=== PATIENT | male | born 1970 | race Caucasian/White ===

== ENCOUNTER 2025-02-13 08:44 | Inpatient (IN) | payer MEDICARE, OTHER ==
[~2025-02-13] VITALS: Ht 167.6 cm; Wt 84.8 kg
--- NOTE | 2025-02-13 09:02 | ELECTROCARDIOGRAPH REPORT ---
[facility] Test Date: 2025-02-13 Test Time: 08:57:05 Pat Name: KYLE WYLIE Department: EMERGENCY ROOM Room: [place] [address] Gender: M [employer] Software Developer: : [id number] Requested By: REBECCA MCGOWAN Order Number: [id number] Reading MD: Dr. João Lauren Measurements Intervals Stark Rate: 90 P: 61 NH: 174 QRS: 73 QRSD: 154 T: 27 QT: 430 QTc: 527 Interpretive Statements Sinus rhythm Probable left atrial enlargement Right bundle branch block Electronically Signed On 02-13-2025 18:20:[address] João Lauren Please click the below link to view image of tracing.
[2025-02-13 09:19] LABS: MEAN PLATELET VOLUME 7.7 FL (7.4-10.4); RED CELL DISTRIBUTION WIDTH 13.6 % (11.5-14.5)
--- NOTE | 2025-02-13 09:34 | Physician Documentation ---
History of Present Illness Chief Complaint: Shortness of Breath Stated Complaint: SOB Time Seen by MD: 09:17 Mode of Arrival: EMS HPI 55-year-old male was seen at [facility] for a sore throat and flu-like symptoms. Was discharged and returned with suspected acute respiratory failure and possible aspiration. Currently on 6 L of oxygen was treated with Rocephin and Zithromax denies any chest pain. Patient does have a history of heart failure and schizophrenia. Patient presents with a pale color his current x- rays indicate right basilar pneumonia. Is somnolent but easily arousable to verbal stimuli. Scott in place patient did receive 20 mg of Lasix prior to arrival along with the antibiotics addition he received 125 mg of Solu-Medrol. Day of Onset: Feb 13, 2025 Medication Reconciliation Allergies: Coded Allergies: No Known Allergies (Unverified , 02/13/25) Scheduled Famotidine (Famotidine), 1 TAB PO Q12H, (Reported) Metoprolol Succinate (Metoprolol Succinate), 25 MG PO DAILY, (Reported) Paliperidone (Invega), 1 TAB PO QAM, (Reported) Quetiapine Fumarate* (Seroquel*), 750 MG PO HS, (Reported) Scheduled PRN Buprenorphine HCl/Naloxone HCl (Buprenorphin-Naloxon 8-2 mg Tb), 1 TAB SL QDAY PRN PRN for pro, (Reported) Furosemide* (Lasix*), 1 TAB PO DAILY PRN for Per Protocol, (Reported) Mirtazapine (Remeron), 1-2 TAB PO HS PRN for sleep, (Reported) Trazodone HCl (Trazodone HCl), 1-2 TAB PO HS PRN for sleep, (Reported) Review of Systems All Other Systems at this time: Reviewed and Negative ROS As stated above in the HPI, otherwise all systems are reviewed and negative. Physical Exam Vital Signs: Temperature: 98.4, Source: Oral, Heart Rate: 89, Respiratory Rate: 16, BP: 99/66, Pulse Oximetry: 96, Weight: 81.360 Oxygen Flow Rate: 4.0 Physical Exam General: Altered respiratory: diminshed lung sounds right side, no audible crackles Cardiovascular: Regular rate and rhythm, no murmurs. Mildly hypotensive Extremities: Bilateral 2+ pitting edema Neurologic: oreinted x 2 Skin: Pale skin color warm and dry. No edema, no ecchymosis. Progress Results/Orders Results/Orders Vital Signs 02/13/25 02/13/25 02/13/25 08:51 09:15 09:27 Temp 98.4 Pulse 89 Resp 15 16 B/P (MAP) 99/66 Pulse Ox 99 96 O2 Delivery Nasal Cannula* O2 Flow Rate 4.0 4 FiO2 36 Laboratory Tests Test 02/13/25 09:07 White Blood Count 13.2 H Red Blood Count 3.91 L Hemoglobin 12.1 L Hematocrit 36.4 L Mean Corpuscular Volume 93.1 Mean Corpuscular Hemoglobin 31.1 H Mean Corpuscular Hemoglobin Concent 33.4 Red Cell Distribution Width 13.6 Platelet Count 223 Mean Platelet Volume 7.7 Neutrophils (%) (Auto) 91.6 H Lymphocytes (%) (Auto) 2.5 L Monocytes (%) (Auto) 5.7 Eosinophils (%) (Auto) 0.1 Basophils (%) (Auto) 0.1 Neutrophils # (Auto) 12.1 H Lymphocytes # (Auto) 0.3 L Monocytes # (Auto) 0.8 Eosinophils # (Auto) 0.0 Basophils # (Auto) 0.0 CBC Comment Chemistry Comments Medical Decision Making Findings 65-year-old male appears to have decompensated two acute respiratory failure and a CHF exacerbation. He has received IV antibiotics and will require further observation by hospitalist service. I added 60 mg of Lasix as he does have pitting edema lower extremities. This patient is altered A&O x2, he is mildly hypotensive with a map of 70 Differential Dx:Considerations: Include: AAA, Angina/DC, Aortic dissection, Appendicitis, Bowel obstruction, Cholangitis, Cholelithasis, Constipation, Diverticular disease, Esophageal rupture, Esophagitis, Gastritis/PUD, Gastroenteritis, GI hemorrhage, Hernia, Hepatitis, Inflammatory BD, Ischemic bowel, Pancreatitis, Porphyria, Testicular torsion, Trauma, intraabdominal, Urinary obstruction, Urinary tract infection, Urolithiasis, Other Departure Disposition: ADMITTED INPATIENT Impression: Primary Impression: Acute on chronic diastolic heart failure Additional Impression: Pneumonia Referrals: NO PRIMARY CARE PROVIDER (PCP) Critical Care Note Total Time (mins): 30 Critical Care Note The very real possibility of a deterioration of this patient's condition required the highest level of my preparedness for sudden, emergent intervention. I provided critical care services, which included medication orders, frequent reevaluations of the patient's condition and response to treatment, ordering and reviewing test results, and discussing the case with various consultants. Excludes time spent performing separately billable procedures. The critical care time associated with the care of the patient was. Signature Scribe Signature: k Attestation: Scribed for Vance Vega Production Control Technologist by Vance Mejia NP . 02/13/25 18:18 VANCE VEGA NP Feb 13, 2025 09:34
--- NOTE | 2025-02-13 09:36 | RADIOLOGY REPORT ---
EXAM: DI CHEST,SINGLE VIEW HISTORY: CP COMPARISON: None TECHNIQUE: Portable upright AP view of the chest was performed. FINDINGS: There is patchy infiltrate in the right lung base partially obscuring the right heart border and righ t hemidiaphragm. No pneumothorax or pulmonary edema. The heart is not enlarged. There is a left chest AICD. IMPRESSION: 1. Right basilar pneumonia. 2. The left lung is clear.
[2025-02-13 09:43] LABS: CREATININE 1.20 MG/DL (0.60-1.10); PRO BRAIN NATRIURETIC PEPTIDE 2076 PG/ML (0-125); TOTAL CARBON DIOXIDE 27.8 MMOL/L (24-32); eCRCL 63 ML/MIN; eGFR 63 ML/MIN
[2025-02-13] MEDS ORDERED: furosemide 10 MG/1 ML 10ml inj IV ONE (09:55)
[2025-02-13] MEDS: normal saline 500ml IV soln 500 ML IV SCH (10:40)
[2025-02-13] MEDS: furosemide 10 MG/1 ML 10ml inj IV ONE (10:52)
[2025-02-13] MEDS ORDERED: potassium Cl 20 mEq SR tablet PO PRN (10:55)
[2025-02-13] MEDS ORDERED: potassium Cl 40MEQ/1/2NS 520ml 520 ML IV PRN (10:55)
[2025-02-13] MEDS ORDERED: magnesium sulf-water 4G/100mL 100 ML IV PRN (10:55)
[2025-02-13] MEDS ORDERED: ondansetron/PF 4mg/2ml inj IV PRN (10:55)
[2025-02-13] MEDS ORDERED: magnesium hydroxide 30ml (MOM) UD suspension PO PRN (10:55)
[2025-02-13] MEDS ORDERED: ipratropium/albuterol 3ml nebule NEB PRN (10:55)
[2025-02-13] MEDS ORDERED: magnesium sulf-water 2g/50mL 50 ML IV PRN (10:55)
[2025-02-13] MEDS: normal saline 1000ml 1,000 ML IV SCH ×2 (11:05→14:12)
[2025-02-13] MEDS: midodrine tablet 2.5 MG TABLET PO SCH (11:29)
[2025-02-13] MEDS: levoFLOXACIN-Levaquin 750MG/D5 150 ML IV STA (11:33)
--- NOTE | 2025-02-13 12:21 | HISTORY AND PHYSICAL ---
History & Physical Providers to CC ~ History of Present Illness Reason for Admit\Complaint: Pneumonia, hypoxic respiratory failure History of Present Illness Isaac Rosado is a 55-year-old male with a past medical history of diastolic heart failure and schizophrenia who was transferred from [facility] for management of pneumonia and acute metabolic encephalopathy. Patient was examined at bedside in the presence of his mother Zaynab Rosado and his brother. At the time of assessment patient is awake, alert, and oriented x 2, however due to decreased mental status from his baseline, most history was taken from transferring facility medical records and his family. Patient came to [place] for vacation with his family. Family reports acute onset severe sore throat, altered mental status, shortness of breaths x 2 days. Denies cough, abdominal pain, n/v/d, palpitations, headache, fever, chills, loss of consciousness. Denies prior ID/CAD, CVA, cardiac arrhythmia, DVT/PE, or GIB. Initial diagnostic findings were notable for elevated procal, hypotension with systolic in 90s, abnormal renal function, leukocytosis, elevated NT-pBNP, chest x-ray indicating right basilar pneumonia and CT chest revealing multifocal right lung pneumonia most prominent in the right middle lobe and right lower lobe. Patient is to be admitted for further workups and treatment. Allergies: Coded Allergies: No Known Allergies (Unverified , 02/13/25) Past Medical History Past Medical History CHF Schizophrenia Past Surgical History Surgical History Comment AICD placement Past Social History Social History Comment Alcohol: Denies Tobacco: Former smoker, quit two years ago, 20 pack year history Illicit drug use: History of methamphetamine and opioid abuse Living situation: Lives at home with family ROS ROS Other than positives in HPI, all 14 review of systems are negative Exam Vitals: Vital Signs Date Time Temp Pulse Resp B/P (MAP) Pulse Ox O2 Delivery O2 Flow Rate FiO2 02/13/25 09:27 96 Nasal Cannula* 4 36 02/13/25 09:15 16 02/13/25 08:51 98.4 89 General: A&Ox2, NAD HEENT: Normocephalic, PERRLA Neck: Supple, trachea midline, no JVD Chest: Diminished right lung sounds Cardiovascular: RRR, S1&S2 Abdomen: Soft and nontender Extremities: No cyanosis/clubbing/or edema Central Nervous System: No focal deficits Musculoskeletal: No paraspinal muscle tenderness, no muscle spasm Skin: Warm and intact Diagnostic Data Last Recorded Lab Results: 02/13/25 0907 02/13/25 0907 Additional Plan Assessment & Plan Community-acquired pneumonia, covering for Gram-positive and Gram-negative Sepsis 2/2 PNA Acute hypoxemic respiratory failure 2/2 PNA Respiratory acidosis, compensated Acute metabolic encephalopathy 2/2 above Prerenal MERRY 2/2 dehydration/vasomotor nephropathy Acute decompensated heart failure- TTE to follow s/p AICD Hx polysubstance abuse including opioids and methamphetamine Schizophrenia Malnutrition, mild- POA -ABG compensated respiratory acidosis, procal 3.75, normal lactic acid, pBNP 2000, trops negative, afebrile; CT chest shows multifocal right lung pneumonia most prominent in the right middle lobe and right lower lobe. -start Levaquin/cefepime, IVF, midodrine, supplemental oxygen, bronchodilators; consulted Supervisory Historian Dr. Hartmann recommended fluid resuscitation with 4L LR, cefepime/Levaquin, recommended against vanco for now with no recent hospitalizations within 3 months; consulted ID Dr. Nayak -follow TTE, ST eval, spot urine lytes, UA, strict I&Os, UDS, resp culture, will start GDMT as indicated DVT/VTE Prophylaxis: heparin Code Status: Full Code I spent a total of 35 minutes discussing Advanced Care Planning measures with the patient and his mother Zaynab Rosado. Advance care planning: Discussed with patient and his mother Zaynab Rosado the importance of advance care planning in case of emergent situation. We discussed various resuscitative measures/ ACP with the patient at the time of admission. Patient and his mother voiced understanding and patient has decided on a full code status. Date of Service: Feb 13, 2025 Billing Provider: CURT AMARAL Common Visit Codes: [id number] INP/OBS CARE (HIGH) Secondary Visit Codes: [id number] CARE PLAN 30 MINUTES CURT AMARAL Feb 13, 2025 12:21
--- NOTE | 2025-02-13 12:22 | RADIOLOGY REPORT ---
Procedure: CT CT CHEST Reason for study/Clinical History: pneumonia, hypoxia Comparison Study: None TECHNIQUE: Multidetector CT of the chest was performed from the lung apices to the upper abdomen with out the use of intravenous contract. Axial, coronal and sagittal multiplanar reformats were performed . Radiation Dose Information: CT Dose: CTDI volume is 17.6 mGy. Dose-length product is 600.7 mGy*cm The dose indicators for CT are the volume Computed Tomography (CT) Dose Index (CTDIvol) and the Dose Length Product (DLP), and are measured in units of mGy and mGy-cm, respectively. These indicators are not patient dose, but values generated from the CT scanner acquisition factors. The report includes radiation exposure data for exposures received during this examination. FINDINGS: Lower neck: Unremarkable. Lungs: Multifocal right lung airspace disease most prominent in the right middle lobe and right lower lobe. Heart/Vascular Structures: Cardiomegaly. Coronary artery calcifications. Vascular calcifications of t he aorta. Left chest pacemaker. Lymph Nodes: No adenopathy Pleura: No pleural effusion or significant pneumothorax. Musculoskeletal: No acute osseous abnormality. Soft tissues: Normal. Upper abdomen: Limited portions of the upper abdomen are unremarkable. IMPRESSION: Multifocal right lung pneumonia most prominent in the right middle lobe and right lower lobe.
[2025-02-13 12:24] LABS: ABG BASE EXCESS -1.1 mmol/L (-2.0-3.0); ABG HCO3 24.3 mmol/L (21.0-28.0); ABG OXYGEN SATURATION 95.3 % (94.0-98.0); ABG PCO2 (T) 43.2 mmHg (35.0-48.0); ABG PH (T) 7.367 (7.350-7.450); ABG PO2 (T) 80.6 mmHg (83.0-108.0); ALLEN'S TEST POSITIVE; FCOHb 0.3 % (0.5-1.5); FHHb 4.7 % (0.0-5.0); FIO2 36.0 mmHg/%; FLOW 4 L/min; FMetHb 0.3 % (0.0-1.5); FO2Hb 94.7 % (94.0-98.0); MODE NASAL CANNULA; PATIENT TEMPERATURE 36.9; TOTAL HEMOGLOBIN 13.1 G/dl (13.5-17.5)
[2025-02-13 12:25] LABS: URINE AMPHETAMINE SCREEN NEGATIVE (Neg); URINE BARBITUATE SCREEN NEGATIVE (Neg); URINE BENZODIAZEPINES SCREEN POSITIVE (Neg); URINE CANNABINOID SCREEN POSITIVE (Neg); URINE COCAINE SCREEN NEGATIVE (Neg); URINE METHADONE SCREEN NEGATIVE (Neg); URINE OPIATE SCREEN NEGATIVE (Neg); URINE PHENCYCLIDINE SCREEN NEGATIVE (Neg)
[2025-02-13] MEDS ORDERED: FAMO20TA8 PO (12:35)
[2025-02-13] MEDS ORDERED: BUPR1TAB45 SL (12:35)
[2025-02-13] MEDS ORDERED: METO-395 PO (12:35)
[2025-02-13] MEDS ORDERED: MIRT-142 PO (12:35)
[2025-02-13] MEDS ORDERED: TRAZ-251 PO (12:35)
[2025-02-13] MEDS ORDERED: PALI3TAB PO (12:35)
[2025-02-13] MEDS ORDERED: QUET-1 PO (12:35)
[2025-02-13] MEDS ORDERED: FURO-150 PO (12:35)
[2025-02-13 13:30] VITALS: BP 101/64; PULSE 73; RESP 11; TEMP 94.6; O2SAT 96
[2025-02-13] MEDS: albuterol 2.5 MG/3 ML nebule NEB PRN (14:59)
[2025-02-13 15:00] VITALS: BP 94/57; PULSE 64; PULSE 80; RESP 11; RESP 16; TEMP 97.3; O2SAT 95
[2025-02-13 15:07] VITALS: PULSE 65; PULSE 72; RESP 16
[2025-02-13] MEDS: normal saline 1000ml 1,000 ML IV ONE (15:14)
[2025-02-13] MEDS ORDERED: normal saline 1000ml 1,000 ML IV STA (16:33)
[2025-02-13] MEDS: normal saline 1000ML IV soln IV ONE (16:41)
[2025-02-13] MEDS ORDERED: cefepime 2g/NS 100ml ADVANTAGE 100 ML IV SCH (16:55)
[2025-02-13] MEDS ORDERED: VANCOMYCIN 2GM/400ML H20 (PEG) 400 ML IV ONE (17:00)
[2025-02-13] MEDS ORDERED: ringers solution, lacted 1,000 ML IV SCH ×2 (17:05→17:45)
[2025-02-13 17:06] LABS: LEUKOCYTE ESTERASE ,URINE NEGATIVE (Neg); NITRITES, URINE NEGATIVE (Neg); OCCULT BLOOD,URINE NEGATIVE (Neg)
[2025-02-13 17:11] LABS: URINE AMPHETAMINE SCREEN NEGATIVE (Neg); URINE BARBITUATE SCREEN NEGATIVE (Neg); URINE BENZODIAZEPINES SCREEN NEGATIVE (Neg); URINE CANNABINOID SCREEN NEGATIVE (Neg); URINE COCAINE SCREEN NEGATIVE (Neg); URINE METHADONE SCREEN NEGATIVE (Neg); URINE OPIATE SCREEN NEGATIVE (Neg); URINE PHENCYCLIDINE SCREEN NEGATIVE (Neg)
[2025-02-13 17:13] LABS: UA COLLECTION TYPE FOLEY CATH
--- NOTE | 2025-02-13 17:22 | CONSULTATION REPORT - RESIDENT ---
Consult Providers to CC Resident Creating Document: ZOILA HURST RES History of Present Illness Reason for Admit\Complaint: Pneumonia, acute hypoxemic respiratory failure History of Present Illness 55-year-old male with a past medical history of hypertrophic cardiomyopathy status post alcohol ablation at [facility] 2005, status post AICD, diastolic heart failure and schizophrenia who was transferred from [facility] for management of pneumonia and acute metabolic encephalopathy. Patient was examined at bedside in the presence of his mother Zaynab Rsoado and his brother. At the time of assessment.. Patient came to [place] for vacation with his family. Family reports acute onset severe sore throat, altered mental status, shortness of breaths x 2 days. Endorses dry cough for the past 1 day. Denied abdominal pain, n/v/d, palpitations, headache, fever, chills, loss of consciousness. Denies prior WI/CAD, CVA, cardiac arrhythmia, DVT/PE, or GIB. Initial diagnostic findings were notable for elevated procal, hypotension with systolic in 90s, abnormal renal function, leukocytosis, elevated NT-pBNP, chest x-ray indicating right basilar pneumonia and CT chest revealing multifocal right lung pneumonia most prominent in the right middle lobe and right lower lobe. Patient is to be admitted for further workups and treatment Reason for consultation : Acute hypoxemic respiratory failure with right lung pneumonia(for 1 day duration and without any previous pneumonia episodes and antibiotic use in the last couple of years) Allergies: Coded Allergies: No Known Allergies (Unverified , 02/13/25) Home Medications Home Medications Active Reported Lasix* (Furosemide) 20 Mg Tablet 1 Tab PO DAILY PRN Trazodone HCl 50 Mg Tablet 1-2 Tab PO HS PRN Famotidine 20 Mg Tablet 1 Tab PO Q12H Remeron (Mirtazapine) 15 Mg Tablet 1-2 Tab PO HS PRN Metoprolol Succinate 25 Mg Tab.sr.24h 25 Mg PO DAILY Invega (Paliperidone) 3 Mg Tab.er.24 1 Tab PO QAM Seroquel* (Quetiapine Fumarate) 100 Mg Tablet 750 Mg PO HS Buprenorphin-Naloxon 8-2 mg Tb (Buprenorphine HCl/Naloxone HCl) 8 Mg-2 Mg Tab.subl 1 Tab SL QDAY PRN PRN Past Medical History Past Medical History CHF Schizophrenia Hypertrophic cardiomyopathy status post alcohol ablation in 2005 at [facility] Status post AICD Past Surgical History Surgical History Comment AICD placement ROS ROS Alcohol: Denies Tobacco: Former smoker, quit two years ago, 20 pack year history Illicit drug use: History of methamphetamine and opioid abuse Living situation: Lives at home with family Exam Vitals: Vital Signs Date Time Temp Pulse Resp B/P (MAP) Pulse Ox O2 Delivery O2 Flow Rate FiO2 02/13/25 15:07 65 16 Nasal Cannula 6.0 02/13/25 15:00 97.3 94/57 (69) 95 02/13/25 15:00 44 General: HEENT: Normocephalic, PERRLA Neck: Supple, trachea midline, no JVD Chest: Diminished right lung sounds Cardiovascular: RRR, S1&S2 Abdomen: Soft and nontender Extremities: No cyanosis/clubbing/or edema Central Nervous System: No focal deficits Musculoskeletal: No paraspinal muscle tenderness, no muscle spasm Skin: Warm and intact Diagnostic Data Last Recorded Lab Results: 02/13/25 0907 02/13/25 0907 Additional Plan Acute hypoxemic respiratory failure Acute metabolic encephalopathy Pneumonia community-acquired pneumonia versus health care associated pneumonia Possible Sepsis Procalcitonin is elevated 3.75 Hypotension Map is maintaining over 65 Order influenza A and B and COVID-19 Ordered gram staining and culture, Preliminary blood culture recent negative Maintaining oxygen saturation at 95% with 6 L of oxygen via nasal cannula Imaging with chest x-ray and CT scan is showing right middle on lower lobe pneumonia Recommended for vancomycin, cefepime, levofloxacin Recommended 4 L of crystalloid IV fluid resuscitation Imaging with chest x-ray and CT scan is showing right middle on lower lobe pneumonia Can be managed in PCU and no need of immediate transferr to ICU because blood pressures & saturation is maintaining with oxygen and crystalloid administration. Call us as needed. Mild normocytic normochromic anemia Cannabinoid use CHF Schizophrenia Management of above per hospitalist team Disposition: Deescalate the antibiotics to ceftriaxone and levofloxacin from tomorrow morning. Zoila Hurst ICU resident, PGY 2 Date of Service: Feb 13, 2025 Billing Provider: SUHAIL ZAMORA MD, VENKATESH, RES Feb 13, 2025 17:22
[2025-02-13] MEDS: LACTATED RINGERS IV ONE (17:28)
[2025-02-13] MEDS: CEFEPIME 2gm in D5W 50mL 50 ML IV SCH (17:40)
[2025-02-13 18:00] VITALS: BP 96/62; PULSE 80; RESP 12; TEMP 97.7; O2SAT 95
[2025-02-13] MEDS ORDERED: normal saline 1000ml 1,000 ML IV ONE (18:00)
--- NOTE | 2025-02-13 18:10 | RADIOLOGY REPORT ---
CT CT HEAD Indication: encephalopathy EXAM DATE: 02/13/2025 05:47 PM COMPARISON: None TECHNIQUE: CT of the head without intravenous contrast. RADIATION DOSE: CTDIvol: 65 mGy, DLP: 1227 mGy*cm FINDINGS: There is no intracranial hemorrhage. There is no extra-axial fluid, mass, mass effect or midline shif t. The ventricles are midline and normal in size. Basilar cisterns are patent. There are mild periven tricular and subcortical white matter chronic microvascular ischemic changes. The paranasal sinuses and mastoids are well-pneumatized. Imaged portion of the orbits are unremarkabl e. IMPRESSION: No intracranial hemorrhage or mass effect. Mild chronic microvascular ischemic changes.
--- NOTE | 2025-02-13 19:11 | CARDIOLOGY REPORT ---
APPROVED REPORT EXAM: Comprehensive 2D, Doppler, and color-flow Echocardiogram. Patient Location: [facility]5 B Heart Rate: 70's bpm Rhythm: SINUS Indications CONGESTIVE HEART FAILURE PACEMAKER 2005 ABLATION 2005 Heat Welder Plastics: NONE (OUT OF AREA) Previous echo: NONE 2D Dimensions RVDd 3.3 cm IVSd 1.4 (0.7-1.1cm) LVDd 3.6 cm PWd 1.4 (0.7-1.1cm) IVSs 1.6 (0.8-1.2cm) LVDs 2.6 (2.5-4.0cm) PWs 1.8 (0.8-1.2cm) LVOT Diameter 2.05 (1.8-2.4cm) LVEF(%) 54.6 (>50%) IVC 17.52 mm FS (%) 27.7 % SV 30.6 ml CO 2.2 L/min M-Mode Dimensions Left Atrium(MM) 5.02 (2.5-4.0cm) Aortic Root 2.97 (2.2-3.7cm) Aortic Cusp Exc 1.98 (1.5-2.0cm) Aortic Valve AoV Peak Femi. 201.8 cm/s AoV VTI 42.6 cm AO Peak GR. 16.3 mmHg AO Mean GR. 9 mmHg LVOT VTI 30.96 cm LVOT Peak Femi. 167.6 cm/s AGUILA(VTI)/BSA 2.40 cm2/m2 AGUILA (VTI) 2.40 cm2 Mitral Valve MV E Velocity 74.0 cm/s MV Peak Gr. 4 mmHg MV DECEL TIME 136 ms MV A Velocity 124.8 cm/s MV PHT 68 ms E/A Ratio 0.6 MVA (PHT) 3.24 cm2 MV DGap591.8 cm/s TDI Lateral E' P. V9.91 cm/s E/Lateral E' 7.5 Tricuspid Valve TR P. Velocity 283 cm/s RAP ESTIMATE 10 mmHg TR Peak Gr. 32 mmHg RVSP 42 mmHg LEFT VENTRICLE Normal LV size and function. Moderate concentric hypertrophy. LVEF is 65-70%. RIGHT VENTRICLE RV is mildly dilated with normal function. Pacemaker wire in right heart. Elevated right heart pressu res with an RVSP of 42 mmHg. ATRIA Left atrium is moderately dilated. AORTIC VALVE Trileaflet AV appears normal without stenosis. No insufficiency. MITRAL VALVE Mild MV annular calcification without stenosis. Trace regurgitation. TRICUSPID VALVE TV appears structurally normal with trace regurgitation. PULMONIC VALVE Normal PV without stenosis, no insufficiency. GREAT VESSELS The aortic root is normal in size. IVC is normal in size and collapses greater than 50% with inspirat ion. PERICARDIUM Normal pericardium. No effusion. Other Information Study Quality: Adequate Conclusion Normal LV size and function. Moderate concentric hypertrophy. LVEF is 65-70%. RV is mildly dilated with normal function. Pacemaker wire in right heart. Elevated right heart pressu res with an RVSP of 42 mmHg. Left atrium is moderately dilated. Trileaflet AV appears normal without stenosis. No insufficiency. Mild MV annular calcification without stenosis. Trace regurgitation. TV appears structurally normal with trace regurgitation. Normal pericardium. No effusion.
[2025-02-13] MEDS ORDERED: CLON0.5T5 PO (19:37)
[2025-02-13] MEDS: docusate sod 100mg capsule PO SCH (19:39)
[2025-02-13] MEDS: heparin, porcine 5000 units/ml vial SQ SCH (19:39)
[2025-02-13 20:00] VITALS: RESP 19; O2SAT 94
[2025-02-13] MEDS: K and/or MAG REPLACEMENT MC SCH (20:00)
[2025-02-13] MEDS: ringers solution, lacted 1,000 ML IV SCH (21:36)
[2025-02-13 22:00] VITALS: BP 97/67; PULSE 93; RESP 14; TEMP 98.4; O2SAT 95
[2025-02-14] VITALS (12 sets, daily range): BP systolic 95–120; BP diastolic 57–77; PULSE 76–100; RESP 10–20; TEMP 97.4–98.3; O2SAT 92–98
[2025-02-14] MEDS: calcium carbonate 500mg chew tablet PO ONE ×2 (03:11→03:12)
[2025-02-14] MEDS ORDERED: vancomycin/NS 1 GM ADD-VANTAGE 250 ML X 1 DOSE IV SCH (05:00)
[2025-02-14 06:49] LABS: MEAN PLATELET VOLUME 8.4 FL (7.4-10.4); RED CELL DISTRIBUTION WIDTH 13.6 % (11.5-14.5)
[2025-02-14 07:16] LABS: CREATININE 1.04 MG/DL (0.60-1.10); PRO BRAIN NATRIURETIC PEPTIDE 4899 PG/ML (0-125); TOTAL CARBON DIOXIDE 26.1 MMOL/L (24-32); eCRCL 72 ML/MIN; eGFR 74 ML/MIN
[2025-02-14] MEDS: PALIPERIDONE 3 MG TAB.ER.24 PO SCH (07:27)
[2025-02-14] MEDS: levoFLOXACIN-Levaquin 750MG/D5 150 ML IV SCH (07:30)
[2025-02-14] MEDS: lactobacillus rhamnosus 10,000 MMU CELLS/CAPSULE PO SCH (08:00)
[2025-02-14] MEDS ORDERED: buprenorphine/naloxone 8mg/2mg SL tablet SL SCH (08:00)
--- NOTE | 2025-02-14 11:15 | PROGRESS NOTE ---
Daily Progress Note Providers to CC ~ Antibiotic Timeout Antibiotic Ordered?: Yes If Yes, Indications: Pneumonia Subjective No acute events overnight. Patient examined at bedside. No new complaints not in acute distress. Patient is more alert and oriented than yesterday, denies chest pain, sob, palpitations, abdominal pain, n/v/d. Blood pressure stable with systolic in 90s after 4 L of bolus fluid resuscitation, on 4-6 L supplemental oxygen via nasal cannula. Making good urine output. Labs notable for uptrending white count and slightly downtrended creatinine on IVF. TTE LVEF 65-70%, RVSP 42mmHg, no significant VHD. Objective Vital Signs Date Time Temp Pulse Resp B/P (MAP) Pulse Ox O2 Delivery O2 Flow Rate FiO2 02/14/25 10:05 89 14 94 Nasal Cannula* 4 36 02/14/25 06:00 98.3 98/65 (76) Result Diagram: 02/14/25 0607 02/14/25 0607 Physical Exam General: Generalized weakness, A&Ox3, NAD HEENT: Normocephalic, PERRLA Neck: Supple, trachea midline, no JVD Chest: Clear to auscultation bilaterally Cardiovascular: RRR, S1&S2 GI: Soft and nontender Extremities: No cyanosis/clubbing/or edema UMBRELLA SUPERVISOR: No focal deficits Musculoskeletal: No paraspinal muscle tenderness, no muscle spasm Skin: Warm and intact Problem\Assessment\Plan Patient is a 55-year-old male who was transferred from [facility] for management of pneumonia and encephalopathy. Influenza A and B and COVID-19 negative at [facility]. Assessment & Plan Community-acquired pneumonia, covering for Gram-positive and Gram-negative Sepsis 2/2 PNA Acute hypoxemic respiratory failure 2/2 PNA Respiratory acidosis, compensated Acute metabolic encephalopathy 2/2 above Prerenal MERRY 2/2 dehydration/vasomotor nephropathy Acute decompensated heart failure- TTE to follow s/p AICD Hx polysubstance abuse including opioids and methamphetamine Schizophrenia Malnutrition, mild- POA -ABG compensated respiratory acidosis, procal 3.75, normal lactic acid, pBNP 2000, trops negative, afebrile; CT chest shows multifocal right lung pneumonia most prominent in the right middle lobe and right lower lobe. -start Levaquin/cefepime, IVF, midodrine, supplemental oxygen, bronchodilators; consulted Machine Hostler Dr. Hartmann recommended fluid resuscitation with 4L LR, cefepime/Levaquin, recommended against vanco for now with no recent hospitalizations within 3 months; consulted ID Dr. Nayak -follow TTE, ST eval, spot urine lytes, UA, strict I&Os, UDS, resp culture, will start GDMT as indicated -02/14: TTE LVEF 65-70%, RVSP 42mmHg, no significant VHD DVT/VTE Prophylaxis: heparin Code Status: Full Code Date of Service: Feb 14, 2025 Billing Provider: CURT AMARAL Common Visit Codes: [id number] INP/OBS CARE(HIGH) CURT AMARAL Feb 14, 2025 11:15
[2025-02-14] MEDS: HYDROcodone/acetaminophen 5mg/325mg tablet PO ONE (13:25)
[2025-02-14] MEDS: lactobacillus rhamnosus 10,000 MMU CELLS/CAPSULE PO ONE (13:26)
[2025-02-14] MEDS: mag hydrox/Alum hydrox/simeth 30ml oral suspension PO PRN (15:26)
--- NOTE | 2025-02-14 19:08 | CONSULTATION ---
DATE OF CONSULTATION: 02/14/2025 DICTATING PHYSICIAN: Arnol Nayak MD REASON FOR CONSULTATION: I am seeing the patient at the request of Reese Chavez for evaluation of pneumonia with associated sepsis. HISTORY OF PRESENT ILLNESS: The patient is a 55-year-old male with cardiomyopathy and schizophrenia who was transferred to this facility from [facility] early yesterday with pneumonia and respiratory failure. He apparently had some alteration of mental status when he first presented, but that has cleared up quickly. He was admitted to the hospitalist service. His blood pressure has been a little bit on the low side. His systolic has been as low as the mid-80s yesterday and he is more in the mid to upper 90s today. It is unclear where his blood pressure normally runs. He has been receiving IV fluids and he has been placed on midodrine. He normally takes low-dose metoprolol along with some furosemide. He was given broad-spectrum antibiotics including cefepime and levofloxacin. He states that he is feeling much better. Of note, he states that he takes Suboxone daily consisting of 2 strips for chronic pain. He is only receiving a little bit of Cooks right now. He does have an elevated white blood cell count, but no fever. He is requiring 3 liters of supplemental oxygen. It does appear that he was requiring more yesterday. PAST MEDICAL HISTORY: Cardiomyopathy. He does have an echocardiogram here that shows a normal ejection fraction. He did have moderate concentric left ventricular hypertrophy. PAST SURGICAL HISTORY: ICD placement. ALLERGIES: None. MEDICATIONS: * Cefepime. * Levofloxacin. * Colace. * Subcutaneous heparin. * Lactobacillus. * Midodrine. * Paliperidone. * Seroquel. FAMILY HISTORY: Noncontributory. SOCIAL HISTORY: He lives with family. They actually lived down in [place]. They were up here in [facility] on vacation. They apparently go to the [facility] every year. He no longer smokes. He has a distant history of drug abuse. PHYSICAL EXAMINATION: VITAL SIGNS: He is afebrile with stable vital signs, currently on 3 liters. Systolic blood pressure is right around 100. GENERAL: He is a very pleasant middle-aged male, lying in bed, looking stable. HEENT: Sclerae anicteric. Mouth is clear. NECK: Supple. LUNGS: Reveal some crackles at the right base. HEART: Regular rate and rhythm. ABDOMEN: Soft, nontender, and nondistended. EXTREMITIES: Minimal edema. He does have a Scott catheter. LABORATORY DATA: His white blood cell count is 16,400, hemoglobin 10.4, platelets 225,000. His creatinine is 1.04, procalcitonin 3.75, proBNP is 4,900. Blood cultures are negative. MRSA screen is pending. CT scan of the chest was reviewed and he does demonstrate significant opacification at the right lower lung field involving the lower lobe and the middle lobe. IMPRESSION: * Community-acquired pneumonia involving the right lower lung. He does not have a history of respiratory tract infections. I am hopeful that he will recover from this fairly quickly. * Sepsis with elevated WBC and procalcitonin. He was mildly tachycardic and he does take a beta kiet at baseline. Blood pressure has been on the low side, but it is unclear where he normally runs. He has received IV fluids. * Congestive heart failure with preserved ejection fraction. * Schizophrenia. * Chronic pain. He usually takes Suboxone consisting of two 8 mg strips daily. PLAN: He will continue with levofloxacin. I do think we can stop cefepime. We will try to wean his oxygen down. I would like to get his Scott catheter out. We may need to have physical therapy work with him. IV fluids will be cut down a bit and hopefully they can be stopped soon. Hopefully, he can also come off midodrine soon. Procalcitonin will be repeated along with a BNP in the morning. I am hopeful that he will bounce back quickly so that he can keep his hospitalization short and return with his family back to their vacation at the [facility]. I will continue to follow the patient closely, and I thank you for allowing me to participate in his care. 75 minutes time spent [id number], review of medical record including labs/cultures/imaging, orders and documentation. Arnol Nayak MD TID: [id number] RECEIPT: [id number] MAJOR/TY MTDSakshi
[2025-02-14] MEDS: HYDROcodone/acetaminophen 5mg/325mg tablet PO PRN (20:54)
[2025-02-14] MEDS: calcium carbonate 500mg chew tablet PO SCH (20:54)
[2025-02-15] VITALS (11 sets, daily range): BP systolic 114–155; BP diastolic 78–98; PULSE 81–108; RESP 15–20; TEMP 97.3–97.6; O2SAT 92–97
[2025-02-15 02:08] LABS: CREATININE,URINE RANDOM 64.0 MG/DL; GLUCOSE,URINE RANDOM 35.0 MG/DL; TOTAL PROTEIN,URINE RANDOM 21.2 MG/DL; UA UREA RANDOM 419.0 MG/DL
[2025-02-15] MEDS ORDERED: VANCOMYCIN LEVEL IV ONE (04:30)
[2025-02-15 06:50] LABS: MEAN PLATELET VOLUME 7.9 FL (7.4-10.4); RED CELL DISTRIBUTION WIDTH 13.7 % (11.5-14.5)
[2025-02-15 07:13] LABS: CREATININE 1.18 MG/DL (0.60-1.10); PRO BRAIN NATRIURETIC PEPTIDE 6651 PG/ML (0-125); TOTAL CARBON DIOXIDE 29.5 MMOL/L (24-32); eCRCL 64 ML/MIN; eGFR 64 ML/MIN
[2025-02-15] MEDS ORDERED: midodrine tablet 2.5 MG TABLET PO PRN (07:20)
[2025-02-15] MEDS: buprenorphine/naloxone 8MG-2MG SUBlingual film SL SCH (07:38)
[2025-02-15] MEDS: lactobacillus rhamnosus 10,000 MMU CELLS/CAPSULE PO SCH (08:00)
--- NOTE | 2025-02-15 10:28 | PROGRESS NOTE ---
Progress Note Dictate Providers to CC ~ Subjective Subjective: He states that he is feeling better today. He is hoping to get out of the hospital soon. He would like to walk some today. He is feeling better now that he got his Suboxone. He did feel that he was going through withdrawal last night. Urinary catheter removed. Objective Objective: GENERAL: He is a very pleasant middle-aged male, lying in bed, looking stable. LUNGS: Decreased breath sounds at the right base. HEART: Regular rate and rhythm. ABDOMEN: Soft, nontender, and nondistended. EXTREMITIES: Minimal edema. Lab Results: 02/15/25 0620 02/15/25 0620 Problem\Assessment\Plan Additional Plan 1. Community-acquired pneumonia involving the right lower lung 2. Sepsis with elevated WBC and procalcitonin - improving 3. Congestive heart failure with preserved ejection fraction - BNP a bit higher 4. Schizophrenia, stable on therapy 5. Chronic pain, stable on Suboxone Continue levofloxacin Try to wean oxygen off Ambulate today DC IV fluids DC midodrine Hopefully he can discharge tomorrow DEVONTE DEL ANGEL MD Feb 15, 2025 10:28
--- NOTE | 2025-02-15 11:49 | PROGRESS NOTE ---
Daily Progress Note Providers to CC ~ Antibiotic Timeout Antibiotic Ordered?: Yes Subjective No acute events overnight. Patient examined at bedside. No new complaints not in acute distress. Patient is A&Ox3, denies chest pain, sob, palpitations, abdominal pain, n/v/d. Vss, labs show downtrending wbc and procal, though BNP uptrended after fluid resuscitation. Got weaned off of supplemental oxygen and on room air saturating in low 90s. Discharge planned for tomorrow per ID recommendation. Objective Vital Signs Date Time Temp Pulse Resp B/P (MAP) Pulse Ox O2 Delivery O2 Flow Rate FiO2 02/15/25 11:00 97.3 91 18 137/84 (101) 93 Room Air 0.0 02/15/25 09:11 32 Result Diagram: 02/15/2561902/15/25619 Physical Exam General: A&Ox3, NAD HEENT: Normocephalic, PERRLA Neck: Supple, trachea midline, no JVD Chest: Clear to auscultation bilaterally Cardiovascular: RRR, S1&S2 GI: Soft and nontender Extremities: No cyanosis/clubbing/or edema CORPORATE TECHNICAL RECRUITER: No focal deficits Musculoskeletal: No paraspinal muscle tenderness, no muscle spasm Skin: Warm and intact Problem\Assessment\Plan Patient is a 55-year-old male who was transferred from [facility] for management of pneumonia and encephalopathy. Influenza A and B and COVID-19 negative at [place]. Assessment & Plan Community-acquired pneumonia, covering for Gram-positive and Gram-negative Sepsis 2/2 PNA Acute hypoxemic respiratory failure 2/2 PNA Respiratory acidosis, compensated Acute metabolic encephalopathy 2/2 above Prerenal MERRY 2/2 dehydration/vasomotor nephropathy Acute decompensated diastolic heart failure s/p AICD Hx polysubstance abuse including opioids and methamphetamine Schizophrenia Malnutrition, mild- POA -ABG compensated respiratory acidosis, procal 3.75, normal lactic acid, pBNP 2000, trops negative, afebrile; CT chest shows multifocal right lung pneumonia most prominent in the right middle lobe and right lower lobe. -start Levaquin/cefepime, IVF, midodrine, supplemental oxygen, bronchodilators; consulted Import Coordination And Production Head Dr. Hartmann recommended fluid resuscitation with 4L LR, cefepime/Levaquin, recommended against vanco for now with no recent hospitalizations within 3 months; consulted ID Dr. Nayak -follow TTE, ST eval, spot urine lytes, UA, strict I&Os, UDS, resp culture, will start GDMT as indicated -02/14: TTE LVEF 65-70%, RVSP 42mmHg, no significant VHD -02/15: downtrending wbc and procal, though BNP uptrended after fluid resuscitation. Got weaned off of supplemental oxygen and on room air saturating in low 90s. Discharge planned for tomorrow per ID recommendation. -IVF discontinued, start GDMT as tolerated, one dose Lasix, follow lab DVT/VTE Prophylaxis: heparin Code Status: Full Code Date of Service: Feb 15, 2025 Billing Provider: CURT AMARAL Common Visit Codes: [id number] INP/OBS CARE(HIGH) CURT AMARAL Feb 15, 2025 11:49
[2025-02-15] MEDS: EMPAGLIFLOZIN 10 MG TABLET PO ONE (12:08)
[2025-02-16 02:00] VITALS: BP 126/75; PULSE 104; RESP 16; TEMP 97.3; O2SAT 95
[2025-02-16 06:00] VITALS: BP 131/80; PULSE 100; RESP 16; TEMP 97.9; O2SAT 95
[2025-02-16 06:55] LABS: MEAN PLATELET VOLUME 7.7 FL (7.4-10.4); RED CELL DISTRIBUTION WIDTH 13.6 % (11.5-14.5)
[2025-02-16 07:19] LABS: CREATININE 1.23 MG/DL (0.60-1.10); PRO BRAIN NATRIURETIC PEPTIDE 3963 PG/ML (0-125); TOTAL CARBON DIOXIDE 24.9 MMOL/L (24-32); eCRCL 61 ML/MIN; eGFR 61 ML/MIN
[2025-02-16] MEDS: potassium Cl 20 mEq SR tablet PO PRN (07:47)
[2025-02-16] MEDS ORDERED: LISI2.5T14 PO (07:47)
[2025-02-16] MEDS ORDERED: LEVO750T68 PO (07:47)
[2025-02-16] MEDS ORDERED: EMPA10TA PO (07:47)
[2025-02-16] MEDS: EMPAGLIFLOZIN 10 MG TABLET PO SCH (07:48)
[2025-02-16 08:00] VITALS: RESP 16; O2SAT 95
[2025-02-16] MEDS: metoprolol succinate 25mg (24-HOUR) SR. Tablet PO SCH (08:06)
--- NOTE | 2025-02-16 08:36 | PROGRESS NOTE ---
Progress Note Dictate Providers to CC ~ Subjective Subjective: He states that he has not slept well. He is not very hungry this morning. He is hoping to be discharged so that he can return to his family up at the [facility]. His breathing is stable and he is off oxygen. No fever. Objective Objective: GENERAL: He is a very pleasant middle-aged male, lying in bed, looking stable. LUNGS: Improved breath sounds at the right base. HEART: Regular rate and rhythm. ABDOMEN: Soft, nontender, and nondistended. EXTREMITIES: Minimal edema. Lab Results: 02/16/2562002/16/25620 Problem\Assessment\Plan Additional Plan 1. Community-acquired pneumonia involving the right lower lung - improving 2. Sepsis with elevated WBC and procalcitonin - resolved 3. Congestive heart failure with preserved ejection fraction - BNP a bit higher 4. Schizophrenia, stable on therapy 5. Chronic pain, stable on Suboxone Discharge today with seven more days of levofloxacin He was advised to follow up with his primary physician in [place] DEVONTE DEL ANGEL MD Feb 16, 2025 08:36
[2025-02-16 08:45] VITALS: PULSE 114; RESP 16; O2SAT 94
[2025-02-16 11:00] VITALS: BP 130/99; PULSE 100; RESP 13; TEMP 97.1; O2SAT 100
--- NOTE | 2025-02-16 11:33 | DISCHARGE SUMMARY ---
Discharge Summary Providers to CC ~ Discharge Summary Admission Diagnosis: acute hypoxic resp failure, acute chf, pneumonia, sepsis Hospital Course DATE OF ADMISSION: 02/12/25 DATE OF DISCHARGE: 09/19/24 Discharge Diagnosis\Comment: Community-acquired pneumonia, covering for Gram-positive and Gram-negative Sepsis 2/2 PNA Acute hypoxemic respiratory failure 2/2 PNA Respiratory acidosis, compensated Acute metabolic encephalopathy 2/2 above MERRY- unable to exclude Acute decompensated diastolic heart failure s/p AICD Hx polysubstance abuse including opioids and methamphetamine Schizophrenia Malnutrition, mild- POA Operations\Procedures: None Consultants: Infectious Disease Dr. Nayak, Arnol Mechanical Field Engineer Diaz Gabriel Complications: None Condition on DC: Stable New Medications: PENDING: Levofloxacin (Levofloxacin) 750 Mg Tablet 750 MG PO DAILY for 7 Days, #7 TAB PENDING: Empagliflozin (Jardiance) 10 Mg Tablet 10 MG PO DAILY for 30 Days, #30 TAB PENDING: Lisinopril (Lisinopril) 2.5 Mg Tablet 2.5 MG PO DAILY for 90 Days, #90 TAB PENDING: Metoprolol Succinate (Metoprolol Succinate) 25 Mg Tab.sr.24h 50 MG PO DAILY for 30 Days, #60 TAB.SR Continued Medications: Buprenorphine HCl/Naloxone HCl (Buprenorphin-Naloxon 8-2 mg Tb) 8 Mg-2 Mg T ab.subl 1 TAB SL QDAY PRN PRN for pro, TAB 0 Refills Clonazepam (Clonazepam) 0.5 Mg Tablet 0.5-1 TAB PO DAILY PRN for for anxiety/agitation MDD 0.5 Famotidine (Famotidine) 20 Mg Tablet 1 TAB PO Q12H, TAB 0 Refills Mirtazapine (Remeron) 15 Mg Tablet 1-2 TAB PO HS PRN for sleep, TAB 0 Refills Paliperidone (Invega) 3 Mg Tab.er.24 1 TAB PO QAM, TAB 0 Refills Quetiapine Fumarate* (Seroquel*) 100 Mg Tablet 750 MG PO HS, TAB Trazodone HCl (Trazodone HCl) 50 Mg Tablet 1-2 TAB PO HS PRN for sleep, TAB 0 Refills Discontinued Medications: Furosemide* (Lasix*) 20 Mg Tablet 1 TAB PO DAILY PRN for Per Protocol, TAB Metoprolol Succinate (Metoprolol Succinate) 25 Mg Tab.sr.24h 25 MG PO DAILY, 0 Refills Discharge Summary: History of Present Illness Isaac Rosado is a 55-year-old male with a past medical history of diastolic heart failure and schizophrenia who was transferred from [facility] for management of pneumonia and acute metabolic encephalopathy. Patient was examined at bedside in the presence of his mother Zaynab Rosado and his brother. At the time of assessment patient is awake, alert, and oriented x 2, however due to decreased mental status from his baseline, most history was taken from transferring facility medical records and his family. Patient came to [place] for vacation with his family. Family reports acute onset severe sore throat, altered mental status, shortness of breaths x 2 days. Denies cough, abdominal pain, n/v/d, palpitations, headache, fever, chills, loss of consciousness. Denies prior IN/CAD, CVA, cardiac arrhythmia, DVT/PE, or GIB. Initial diagnostic findings were notable for elevated procal, hypotension with systolic in 90s, abnormal renal function, leukocytosis, elevated NT-pBNP, chest x-ray indicating right basilar pneumonia and CT chest revealing multifocal right lung pneumonia most prominent in the right middle lobe and right lower lobe. Patient is to be admitted for further workups and treatment. Hospital Course Diagnostic findings were notable for findings of sepsis including profound hypotension, renal insufficiency, clinical signs of altered mental status, CT chest revealing multifocal right lung pneumonia, ABG revealing compensated respiratory acidosis. Patient was treated with fluid resuscitation, midodrine, and empirical antibiotics. Case was consulted with tariff expert Dr. Hartmann and ID Dr. Nayak. With fluid resuscitation, vitals have stabilized not requiring pressors. TTE LVEF 65-70%, RVSP 42mmHg, no significant VHD. Once blood pressure stabilized, patient was treated with GDMT including diuretics for decompensated heart failure. Patient did not experience further complications throughout the entire hospital stay and made a good recovery. Patient was seen and examined on the day of discharge. On day of discharge, mentation is back to his baseline, vss and labs unremarkable. All labs, diagnostic workups, discharge plan discussed with patient in details during visit before discharge. All questions and concerns answered to the best of my professional knowledge. Patient is to be discharged to home to self and to follow-up with PCP within 2 weeks. Patient is discharged with 1-week course of Levaquin per ID recommendation. Physical Exam General: A&Ox3, NAD HEENT: Normocephalic, PERRLA Neck: Supple, trachea midline, no JVD Chest: Clear to auscultation bilaterally Cardiovascular: RRR, S1&S2 GI: Soft and nontender Extremities: No cyanosis/clubbing/or edema EXCELLENCE LEADER: No focal deficits Musculoskeletal: No paraspinal muscle tenderness, no muscle spasm Skin: Warm and intact *Problems/Diagnosis: (1) Pneumonia Status: Acute Total Time Spent on D/C: > 30 Minutes Date of Service: Feb 16, 2025 Billing Provider: CURT AMARAL Common Visit Codes: 08572-SYL/OBS DISCH DAY >30min CURT AMARAL Feb 16, 2025 11:33
[2025-02-16] MEDS ORDERED: METO-395 PO (11:40)
[2025-02-16] MEDS: metoprolol succinate 25mg (24-HOUR) SR. Tablet PO ONE (11:50)
[2025-02-17] MEDS ORDERED: metoprolol succinate 25mg (24-HOUR) SR. Tablet PO SCH (08:00)
== END 2025-02-16 13:00 | disposition home or self-care (01) | DRG 871 ==
LOC: ER 08:45 → ED HOLD 11:03 → PCU 3S 13:15
PROVIDERS: ADMIT Nurse Practitioner Family; ATTEND Nurse Practitioner Family
DX: A41.9 Sepsis, unspecified organism (principal); G93.41 Metabolic encephalopathy; I50.33 Acute on chronic diastolic (congestive) heart failure; J96.01 Acute respiratory failure with hypoxia; J15.69 Pneumonia due to other Gram-negative bacteria; J15.9 Unspecified bacterial pneumonia; E44.1 Mild protein-calorie malnutrition; I42.9 Cardiomyopathy, unspecified; N17.9 Acute kidney failure, unspecified; E86.0 Dehydration; F19.10 Other psychoactive substance abuse, uncomplicated; F20.9 Schizophrenia, unspecified; Z79.899 Other long term (current) drug therapy; Z87.891 Personal history of nicotine dependence; Z95.810 Presence of automatic (implantable) cardiac defibrillator; Z68.30 Body mass index [BMI] 30.0-30.9, adult
CPT/HCPCS: 36415; 36600; 70450; 71045; 71250; 80048; 80053; 80305; 81003; 82570; 82803; 82945; 83605; 83735; 83880; 84133; 84145; 84156; 84300; 84484; 84540; 85018; 85025; 87040; 87070; 87081; 92508; 92616; 93005; 93306; 94640; 94760; 96365; 97116; 97161; 97530; 99291; A4615; A5200; G0378; J0692; J1644; J1938; J1956; J7030; J7040; J7120